=== PATIENT | male | born 1960 | race African-American/Black ===

== ENCOUNTER 2017-12-17 10:07 | Emergency (ER) | payer SELFPAY | END 2017-12-17 11:50 | disposition home or self-care (01) | LOC: D.ER 10:07 | DX: M25.512 Pain in left shoulder (principal); M54.6 Pain in thoracic spine; M77.11 Lateral epicondylitis, right elbow; M54.2 Cervicalgia ==

== ENCOUNTER 2020-05-12 12:46 | Emergency (ER) | payer MEDICARE, MEDICAID ==
[~2020-05-12] VITALS: Ht 167.6 cm; Wt 61.4 kg
[2020-05-12 12:52] VITALS: Ht 167.6 cm; Wt 61.4 kg
[2020-05-12] MEDS ORDERED: MUPIROCIN22 GM TOPICAL (13:40)
[2020-05-12 14:11] VITALS: BP 142/76
== END 2020-05-12 14:12 | disposition home or self-care (01) ==
LOC: D.ER 12:46
DX: S51.812A Laceration without foreign body of left forearm, initial encounter (principal); W22.8XXA Striking against or struck by other objects, initial encounter; Y93.9 Activity, unspecified; Y92.9 Unspecified place or not applicable

== ENCOUNTER 2020-05-21 18:25 | Emergency (ER) | payer MEDICARE, MEDICAID ==
[~2020-05-21] VITALS: Ht 167.6 cm; Wt 63.6 kg
[~2020-05-21 18:25] MED LIST: MUPIROCIN22 GM TOPICAL
[2020-05-21 18:29] VITALS: BP 133/85; Ht 167.6 cm; Wt 63.6 kg
== END 2020-05-21 20:15 | disposition home or self-care (01) ==
LOC: D.ER 18:25
DX: Z48.02 Encounter for removal of sutures (principal)